=== PATIENT | female | born 1995 | race African-American/Black ===

== ENCOUNTER 2022-10-24 07:05 | Emergency (ER) | payer MEDICAID ==
[~2022-10-24] VITALS: Ht 170.2 cm; Wt 69.0 kg
[2022-10-24 07:09] VITALS: BP 158/113
== END 2022-10-24 11:20 | disposition home or self-care (01) ==
LOC: ER 07:05
DX: T74.21XA Adult sexual abuse, confirmed, initial encounter (principal)
CPT/HCPCS: 81025; 99282